=== PATIENT | male | born 1965 | race Caucasian/White ===

== ENCOUNTER 2021-05-28 11:01 | Emergency (ER) | payer MEDICAID, SELFPAY ==
--- NOTE | ~2021-05-28 | XR_ITS ---
EXAMINATION: XR CERVICAL SPINE CLINICAL INFORMATION: Neck pain with arthritic changes COMPARISON: None TECHNIQUE: 3 views of the cervical spine were obtained. FINDINGS: There is mild straightening of cervical lordosis. The vertebral heights, alignment and disc heights are normal. There is mild ventral spinal spondylosis C5-C6 disc level. Rest the disc heights are normal. No visible acute fracture, dislocation or lytic process seen. The prevertebral and paravertebral soft tissues are normal. XR/XR cervical spine 3V IMPRESSION: Mild ventral spondylosis C5-C6 disc level. No visible acute fracture or dislocation seen.
[2021-05-28 11:10] VITALS: BP 184/110; BP 233/114; PULSE 86; PULSE 94; RESP 18; TEMP 37.2; O2SAT 99; BMI 31.1
--- NOTE | 2021-05-28 11:15 | ED.CHESTPAIN ---
HPI - Chest Pain General Chief Complaint: Chest Pain Stated Complaint: CHEEST PAIN X'S 3 DAYS FROM URGENT CARE Time Seen by Provider: 05/28/21 11:14 Source: patient Mode of arrival: EMS Limitations: no limitations History of Present Illness HPI narrative: Patient with right neck and shoulder pain for one week but occaisionally it would go to the chest. He went to the urgent care which performed an EKG which was normal but they called the ambulance. Patient had arterial bypass of right leg in 2011. Ambulance gave chewable ASA. complaint: chest pain Onset (ago): day(s) Timing of current episode: episodic Onset: during rest Pain location: other (entire chest) Pain radiation: jaw/teeth Severity: moderate Quality: tightness Relieving factors: other (movement) Exacerbating factors: nothing Treatment prior to arrival: none Risk Factors Coronary artery disease risk factors: smoking history, hyperlipidemia and hypertension Related Data Previous Rx's Medication Instructions Recorded labetalol 100 mg tablet 100 mg PO BID #30 tab 05/28/21 Allergies Allergy/AdvReac Type Severity Reaction Status Date / Time No Known Allergies Allergy Verified 05/28/21 11:23 Review of Systems Constitutional: Constitutional: Reports no additional constitutional complaints Eyes: Eyes: Reports no additional eye complaints ENT: Denies dizziness Cardiovascular: Cardiovascular: Reports no additional cardiovascular complaints Respiratory: Respiratory: Reports as per HPI Gastrointestinal: Gastrointestinal: Reports no additional gastrointestinal complaints Musculoskeletal: Musculoskeletal: Reports no additional musculoskeletal complaints Integumentary/Breasts: Skin/Breast: Denies rash Neurologic: Reports system reviewed and no additional complaints, except as documented, Denies dizziness and Denies Sensory deficit (Neuro) Psychiatric: Psychiatric: Denies anxiety [facility] Past Medical History Medical History HTN (hypertension) Hyperlipidemia Social History Social History Alcohol intake: unknown Patient Tobacco Use Status: Tobacco use Unknown Use of substances other than those prescribed or required for medical reasons: Unknown Advance Directives: No Advance Directives Information Provided: Yes Physical Exam Vital Signs: Vital Signs: Last Vital Signs Temp 97.5 F 05/28/21 14:33 Pulse 74 05/28/21 16:11 Resp 22 H 05/28/21 16:11 BP 127/79 05/28/21 16:11 Pulse Ox 95 05/28/21 16:11 BMI result Body Mass Index 31.1 Const: General: healthy appearing Nutritional Appearance: average body habitus Orientation/consciousness: oriented to person and patient oriented x3 Limitations: no limitations HENMT: Head: Yes normal to inspection Ears: external ears normal General nose exam: Normal external nose present Mouth: Normal oral and palatal mucosa present and oropharynx normal Throat: Yes posterior oropharynx normal Eyes: General: appearance normal, both eyes and all related structures Neck: Other: supple Neck: Yes normal visual inspection Chest: Chest palpation & inspection: normal inspection of the chest Resp: Auscultation: clear to auscultation bilaterally Cardio: Jugular venous distension: no JVD Rate: regular rate Rhythm: regular rhythm Heart sounds: S1 normal heart sound present and S2 normal heart sound present GI: Inspection: Yes normal to inspection Palpation (GI): Soft to palpation, nontender and No hepatosplenomegaly present Auscultation: normal bowel sounds : General: Yes no CVA tenderness Back/Spine/Pelvis: Back: no CVA tenderness Skin: General skin exam: no rashes or lesions noted Neuro: General: oriented to person and patient oriented x3 Cranial nerves: Yes CN's II-XII intact bilaterally Motor exam (neuro): 5/5 motor strength present throughout Sensory Exam: No Sensory deficit (Neuro) Extrem: General: Yes normal to inspection Psych: Appearance: grossly normal Course Reevaluation(s) Reevaluation #1: Patient with no significant elevation of his troponin, will start labetalol for his hypertension and dc home Time: 16:44 MDM - Chest Pain Lab Data Result diagrams: 05/28/21 11:45 05/28/21 11:45 Labs: Lab Results 05/28/21 05/28/21 05/28/21 Range/Units 11:45 11:45 11:45 WBC 6.8 (4.8-10.8) X10*3/uL RBC 5.43 (4.60-5.80) X10*6/uL Hgb 16.5 (14.0-18.0) g/dl Hct 48.3 (42.0-52.0) % MCV 89.0 (80.0-98.0) fL MCH 30.4 (27.0-33.0) pg MCHC 34.2 (31.0-36.0) g/dl RDW 13.1 (11.0-16.0) % Plt Count 265 (160-400) X10*3/uL MPV 8.8 L (9.4-12.4) fL Immature Gran % (Auto) 0.7 H (0.0-0.4) % Neut % (Auto) 59.2 (45-73) % Lymph % (Auto) 25.5 (20-40) % Oliver % (Auto) 10.1 (2-11) % Eos % (Auto) 3.5 (0-4) % Baso % (Auto) 1.0 (0-2) % Lymph # (Auto) 1.7 (1.2-4.9) X10*3/uL Oliver # (Auto) 0.7 (0.1-1.2) X10*3/uL Eos # (Auto) 0.2 (0.0-0.4) X10*3/uL Baso # (Auto) 0.1 (0.0-0.2) X10*3/uL Abs Immat Gran (auto) 0.05 H (0.00-0.03) X10*3/uL Absolute Neuts (auto) 4.0 (2.0-8.3) x10*3/uL Absolute Nucleated RBC 0.000 (0.0-0.012) X10*3/uL Nucleated RBC % (auto) 0.0 (0.0-0.2) /100WBC Sodium 140 (135-145) mmol/L Potassium 4.2 (3.3-5.1) mmol/L Chloride 103 (96-108) mmol/L Carbon Dioxide 27 (22-29) mmol/L Anion Gap 14 (12-20) BUN 6 L (9-16) mg/dL Creatinine 0.87 (0.5-1.4) mg/dL Estim Creat Clear Calc 107.4 Estimated GFR > 60 Random Glucose 126 H (60-115) mg/dL Calcium 9.7 (8.4-10.2) mg/dL Troponin I High Sens 15.9 (<3.5-35.0) ng/L 05/28/21 Range/Units 14:26 WBC (4.8-10.8) X10*3/uL RBC (4.60-5.80) X10*6/uL Hgb (14.0-18.0) g/dl Hct (42.0-52.0) % MCV (80.0-98.0) fL MCH (27.0-33.0) pg MCHC (31.0-36.0) g/dl RDW (11.0-16.0) % Plt Count (160-400) X10*3/uL MPV (9.4-12.4) fL Immature Gran % (Auto) (0.0-0.4) % Neut % (Auto) (45-73) % Lymph % (Auto) (20-40) % Oliver % (Auto) (2-11) % Eos % (Auto) (0-4) % Baso % (Auto) (0-2) % Lymph # (Auto) (1.2-4.9) X10*3/uL Oliver # (Auto) (0.1-1.2) X10*3/uL Eos # (Auto) (0.0-0.4) X10*3/uL Baso # (Auto) (0.0-0.2) X10*3/uL Abs Immat Gran (auto) (0.00-0.03) X10*3/uL Absolute Neuts (auto) (2.0-8.3) x10*3/uL Absolute Nucleated RBC (0.0-0.012) X10*3/uL Nucleated RBC % (auto) (0.0-0.2) /100WBC Sodium (135-145) mmol/L Potassium (3.3-5.1) mmol/L Chloride (96-108) mmol/L Carbon Dioxide (22-29) mmol/L Anion Gap (12-20) BUN (9-16) mg/dL Creatinine (0.5-1.4) mg/dL Estim Creat Clear Calc Estimated GFR Random Glucose (60-115) mg/dL Calcium (8.4-10.2) mg/dL Troponin I High Sens 19.6 (<3.5-35.0) ng/L Imaging Data cervical spine: Radiologist's impression: IMPRESSION: Mild ventral spondylosis C5-C6 disc level. No visible acute fracture or dislocation seen. ? ECG Data ECG #1: Interpretation: sinus rate of 80, no st or twave changes Discharge Plan Discharge Clinical Impression: Hypertension, uncontrolled Chest pain Qualifiers: Chest pain type: unspecified Qualified Code(s): R07.9 - Chest pain, unspecified Patient Disposition: Home, Self-Care Instructions: Chest Pain (ED), Hypertension (ED) Prescriptions: New labetalol 100 mg tablet 100 mg PO BID Qty: 30 RF: 0 Referrals: Physician,Unknown J [Primary Care Provider] - 5 days
[2021-05-28 11:49] LABS: MANUAL DIFF FLAG NO
[2021-05-28 11:50] LABS: Basophils Absolute Auto 0.1 X10*3/uL (0.0-0.2); Eosinophils Absolute Auto 0.2 X10*3/uL (0.0-0.4); Eosinophils Percent Auto 3.5 % (0-4); Hematocrit 48.3 % (42.0-52.0); Hemoglobin 16.5 g/dl (14.0-18.0); Imm Gran Abs Auto 0.05 X10*3/uL (0.00-0.03); Imm Gran Pct Auto 0.7 % (0.0-0.4); Lymphocytes Absolute Auto 1.7 X10*3/uL (1.2-4.9); Lymphocytes Percent Auto 25.5 % (20-40); Mean Corpuscular HGB Conc 34.2 g/dl (31.0-36.0); Mean Corpuscular Hemoglobin 30.4 pg (27.0-33.0); Mean Platelet Volume 8.8 fL (9.4-12.4); Monocytes Absolute Auto 0.7 X10*3/uL (0.1-1.2); Monocytes Percent Auto 10.1 % (2-11); Neutrophils Percent Auto 59.2 % (45-73); Platelet Count 265 X10*3/uL (160-400); Red Blood Count 5.43 X10*6/uL (4.60-5.80); Red Cell Distribution Width 13.1 % (11.0-16.0); White Blood Count 6.8 X10*3/uL (4.8-10.8)
[2021-05-28 12:09] LABS: Anion Gap 14 (12-20); Blood Urea Nitrogen 6 mg/dL (9-16); Calcium 9.7 mg/dL (8.4-10.2); Carbon Dioxide 27 mmol/L (22-29); Chloride 103 mmol/L (96-108); Creatinine Clr Calc Pharmacy 107.4; Estimated Glomerular Filt Rate > 60; Glucose Random 126 mg/dL (60-115); Potassium 4.2 mmol/L (3.3-5.1); Sodium 140 mmol/L (135-145)
[2021-05-28 12:14] LABS: Troponin-I High Sensitivity 15.9 ng/L (<3.5-35.0)
[2021-05-28 12:16] VITALS: BP 233/114
[2021-05-28] MEDS: Labetalol HCL 100 MG/20 ML VIAL 10 MG IVPUSH (12:16)
[2021-05-28] MEDS: Nitroglycerin 2 % Oint 1 GM Packet 1 INCH TRANSDERMA (12:17)
[2021-05-28 12:37] VITALS: BP 147/83; PULSE 71; RESP 19; TEMP 36.5; O2SAT 96
[2021-05-28 14:22] VITALS: BP 147/83
[2021-05-28] MEDS: Labetalol HCL 100 MG TABLET PO (14:22)
[2021-05-28 14:33] VITALS: BP 145/86; PULSE 80; RESP 17; TEMP 36.4; O2SAT 96
[2021-05-28 14:53] LABS: Troponin-I High Sensitivity 19.6 ng/L (<3.5-35.0)
[2021-05-28 16:11] VITALS: BP 127/79; PULSE 74; RESP 22; O2SAT 95
== END 2021-05-28 17:25 | disposition home or self-care (01) ==
PROVIDERS: Emergency Provider Emergency Medicine
DX: R07.9 Chest pain, unspecified (principal); I10 Essential (primary) hypertension
CPT/HCPCS: 36415; 72040; 80048; 84484; 85025; 96374; 99284; 99285